=== PATIENT | female | born 1930 | race Caucasian/White ===

== ENCOUNTER 2018-02-25 22:55 | Inpatient (IN) | payer MEDICARE, MEDICAID ==
[2018-02-25] MEDS: SODIUM CHLORIDE 0.9% 1L BAG IV* (00:34)
[2018-02-25 23:35] LABS: ADD MAN DIFF? NO
[2018-02-25 23:45] LABS: WHITE BLOOD COUNT 11.3 10^3/ul (4.8-10.8)
[2018-02-25 23:45] LABS: BASOPHIL # 0.1 10^3/ul (0.0-0.1); BASOPHILS % 0.5 % (0.0-2.0); EOSINOPHILS % 0.1 % (0.0-7.0); HEMOGLOBIN 14.6 g/dl (12.0-16.0); LYMPHOCYTES # 1.8 10^3/ul (0.8-2.9); MEAN CORPUSCULAR HEMOGLOBIN 28.4 pg (29.0-33.0); MEAN CORPUSCULAR HGB CONC 31.1 g/dl (32.0-37.0); MEAN CORPUSCULAR VOLUME 91.4 fl (82.0-101.0); MEAN PLATELET VOLUME 10.8 fl (7.4-10.4); MONOCYTE # 0.8 10^3/ul (0.3-0.9); NEUTROPHIL # 8.6 10^3/ul (1.6-7.5); NEUTROPHILS % 75.9 % (39.0-77.0); PLATELET COUNT 324 10^3/UL (140-415); RED BLOOD COUNT 5.14 10^6/ul (4.20-5.40); RED CELL DISTRIBUTION WIDTH 14.1 % (11.5-14.5)
[2018-02-26 00:04] LABS: INR 1.19; PROTIME 15.3 Sec (11.9-14.9); PT RATIO 1.2
[2018-02-26 00:05] LABS: LACTIC ACID 7.1 mmol/L (0.5-2.0)
[2018-02-26 00:08] LABS: ALANINE AMINOTRANSFERASE 21 IU/L (13-69); ALBUMIN 4.5 g/dl (3.3-4.9); ALBUMIN/GLOBULIN RATIO 1.02; ALKALINE PHOSPHATASE 93 IU/L (42-121); ANION GAP 19 (8-16); ASPARTATE AMINO TRANSFERASE 29 IU/L (15-46); BILIRUBIN,INDIRECT 0.4 mg/dl (0-1.1); BILIRUBIN,TOTAL 0.4 mg/dl (0.2-1.3); BLOOD UREA NITROGEN 22 mg/dl (7-20); CALCIUM 9.6 mg/dl (8.4-10.2); CARBON DIOXIDE 19 mmol/L (21-31); CHLORIDE 117 mmol/L (97-110); CREATININE 0.79 mg/dl (0.44-1.00); GLUCOSE 151 mg/dl (70-220); LIPASE 23 U/L (23-300); MAGNESIUM 2.4 mg/dl (1.7-2.5); SODIUM 151 mmol/L (135-144); TOTAL PROTEIN 8.9 g/dl (6.1-8.1)
[2018-02-26 00:09] LABS: DIGOXIN < 0.4 ng/ml (1.0-2.0)
[2018-02-26 00:19] LABS: TROPONIN-I < 0.010 ng/ml (0.000-0.120)
[2018-02-26 01:23] LABS: URINE BLOOD (Dip) POC 2+ (NEGATIVE); URINE GLUCOSE (Dip) POC Negative (NEGATIVE); URINE KETONES (Dip) POC Negative (NEGATIVE); URINE LEUKOCYTE EST (Dip) POC 1+ (NEGATIVE); URINE NITRITE (Dip) POC Positive (NEGATIVE); URINE TOTAL PROTEIN POC 3+ (NEGATIVE)
[2018-02-26 01:23] LABS: URINE PH (Dip) POC 6.5 (5.0-8.5)
[2018-02-26] MEDS: DIGOXIN 500 MCG INJ IV ×2 (02:33→05:58)
[2018-02-26 02:38] LABS: LACTIC ACID 2.4 mmol/L (0.5-2.0)
[2018-02-26] MEDS: MEROPENEM 1 GM/50ML(PMX) 50 ML IVPB ×2 (02:59→15:38)
[2018-02-26] MEDS ORDERED: NACL 0.9% 3 ML SYG IV (03:00)
[2018-02-26] MEDS ORDERED: DOCUSATE SODIUM 100 MG CAP PO ×2 (03:00→21:00)
[2018-02-26] MEDS ORDERED: ACETAMINOPHEN 325 MG TAB PO (03:00)
[2018-02-26] MEDS ORDERED: LORAZEPAM 2 MG INJ IV (03:00)
[2018-02-26] MEDS ORDERED: ONDANSETRON 4 MG INJ IV (03:00)
[2018-02-26] MEDS ORDERED: BISACODYL 10 MG SUPP PR (03:00)
[2018-02-26] MEDS ORDERED: VANCOMYCIN IV PER PHARMACY XX (03:00)
[2018-02-26] MEDS ORDERED: morphine 2 MG INJ IV (03:00)
[2018-02-26] MEDS ORDERED: MAGNESIUM HYDROXIDE 30ML CUP PO (03:00)
[2018-02-26] MEDS ORDERED: ACETAMINOPHEN 325 MG TAB GTB (03:00)
[2018-02-26] MEDS: DIATR MEGLU/DIATRIZOATE SODIUM 120 ML BTL (04:17)
[2018-02-26] MEDS: VANCOMYCIN 1 GM in 250 ML IVPB (04:32)
[2018-02-26] MEDS: CARBIDOPA/LEVODOPA (25/250) TAB GTB ×3 (06:00→21:15)
[2018-02-26 06:34] LABS: LACTIC ACID 4.3 mmol/L (0.5-2.0)
[2018-02-26] MEDS: SOD CHLORIDE 0.9% 1,000 ML IV ×2 (06:40→15:24)
[2018-02-26] MEDS: LEVOTHYROXINE 88 MCG TAB GTB (07:00)
[2018-02-26] MEDS ORDERED: PENDING SANTYL ORDER FOR WOUND CARE XX (07:00)
[2018-02-26] MEDS ORDERED: PANTOPRAZOLE (EC) 40 MG TAB PO (09:00)
[2018-02-26] MEDS: CALCIUM/VITAMIN D (500/200) TAB GTB ×2 (09:08→20:07)
[2018-02-26] MEDS: AMLODIPINE 5 MG TAB GTB (09:08)
[2018-02-26] MEDS: ASCORBIC ACID 500 MG TAB GTB ×3 (09:08→20:07)
[2018-02-26] MEDS: GABAPENTIN 100 MG CAP GTB ×3 (09:08→20:07)
[2018-02-26] MEDS: APIXABAN 5 MG TABLET GTB ×2 (09:08→20:07)
[2018-02-26] MEDS: METOPROLOL 25 MG TAB GTB ×2 (09:08→20:07)
[2018-02-26] MEDS: PANTOPRAZOLE (EC) 40 MG TAB PO (09:09)
[2018-02-26] MEDS: MAGNESIUM HYDROXIDE 30ML CUP GTB (09:09)
[2018-02-26] MEDS: MULTIVITAMINS 30 ML CUP GTB (09:30)
[2018-02-26] MEDS: DIGOXIN 0.125 MG TAB GTB (13:20)
[2018-02-26] MEDS ORDERED: DOCUSATE SODIUM 10 MG/ML (10ML CUP) GTB (20:30)
[2018-02-26] MEDS: DOCUSATE SODIUM 10 MG/ML (10ML CUP) GTB (21:14)
[2018-02-27] MEDS: MAGNESIUM HYDROXIDE 30ML CUP GTB (03:38)
[2018-02-27] MEDS: MEROPENEM 1 GM/50ML(PMX) 50 ML IVPB ×2 (03:46→14:55)
[2018-02-27] MEDS: VANCOMYCIN 750 MG in SOD CHLORIDE 0.9% 150 ML IVPB (03:47)
[2018-02-27] MEDS: LANSOPRAZOLE 30 MG CAP GTB (05:15)
[2018-02-27] MEDS: CARBIDOPA/LEVODOPA (25/250) TAB GTB ×3 (05:15→22:00)
[2018-02-27] MEDS: LEVOTHYROXINE 88 MCG TAB GTB (05:15)
[2018-02-27 06:48] LABS: ADD MAN DIFF? NO
[2018-02-27 06:50] LABS: WHITE BLOOD COUNT 15.1 10^3/ul (4.8-10.8)
[2018-02-27 06:50] LABS: BASOPHIL # 0.1 10^3/ul (0.0-0.1); BASOPHILS % 0.7 % (0.0-2.0); EOSINOPHILS # 0.4 10^3/ul (0.0-0.5); EOSINOPHILS % 2.7 % (0.0-7.0); HEMATOCRIT 43.6 % (37.0-47.0); HEMOGLOBIN 13.4 g/dl (12.0-16.0); LYMPHOCYTES # 2.2 10^3/ul (0.8-2.9); LYMPHOCYTES % 14.6 % (15.0-51.0); MEAN CORPUSCULAR HEMOGLOBIN 28.3 pg (29.0-33.0); MEAN CORPUSCULAR HGB CONC 30.7 g/dl (32.0-37.0); MONOCYTE # 1.5 10^3/ul (0.3-0.9); MONOCYTES % 9.7 % (0.0-11.0); NEUTROPHIL # 10.8 10^3/ul (1.6-7.5); NEUTROPHILS % 71.8 % (39.0-77.0); PLATELET COUNT 306 10^3/UL (140-415); RED BLOOD COUNT 4.74 10^6/ul (4.20-5.40); RED CELL DISTRIBUTION WIDTH 13.8 % (11.5-14.5)
[2018-02-27 07:16] LABS: ALBUMIN 3.8 g/dl (3.3-4.9); ALKALINE PHOSPHATASE 87 IU/L (42-121); ANION GAP 13 (8-16); ASPARTATE AMINO TRANSFERASE 38 IU/L (15-46); BILIRUBIN,INDIRECT 0.4 mg/dl (0-1.1); BILIRUBIN,TOTAL 0.4 mg/dl (0.2-1.3); BLOOD UREA NITROGEN 17 mg/dl (7-20); CALCIUM 9.2 mg/dl (8.4-10.2); CARBON DIOXIDE 24 mmol/L (21-31); CHLORIDE 115 mmol/L (97-110); CREATININE 0.59 mg/dl (0.44-1.00); GLUCOSE 105 mg/dl (70-220); POTASSIUM 3.1 mmol/L (3.5-5.1); SODIUM 149 mmol/L (135-144); TOTAL PROTEIN 7.6 g/dl (6.1-8.1)
[2018-02-27 07:17] LABS: PHOSPHORUS 2.6 mg/dl (2.5-4.9)
[2018-02-27 07:17] LABS: MAGNESIUM 2.1 mg/dl (1.7-2.5)
[2018-02-27 07:21] LABS: ALANINE AMINOTRANSFERASE < 6 IU/L (13-69)
[2018-02-27] MEDS: AMLODIPINE 5 MG TAB GTB (08:42)
[2018-02-27] MEDS: CALCIUM/VITAMIN D (500/200) TAB GTB ×2 (08:42→20:42)
[2018-02-27] MEDS: ASCORBIC ACID 500 MG TAB GTB ×3 (08:42→20:42)
[2018-02-27] MEDS: MULTIVITAMINS 30 ML CUP GTB (08:42)
[2018-02-27] MEDS: POTASSIUM CHLORIDE (SR) 20 MEQ TAB PO (08:43)
[2018-02-27] MEDS: GABAPENTIN 100 MG CAP GTB ×3 (08:43→20:42)
[2018-02-27] MEDS: APIXABAN 5 MG TABLET GTB (08:43)
[2018-02-27] MEDS: METOPROLOL 25 MG TAB GTB ×2 (08:43→20:41)
[2018-02-27] MEDS: DIGOXIN 0.125 MG TAB GTB (13:00)
[2018-02-27] MEDS: DEXTROSE 5%-0.45% NACL 1,000 ML IV (17:32)
[2018-02-27] MEDS: DOCUSATE SODIUM 10 MG/ML (10ML CUP) GTB (20:41)
[2018-02-28] MEDS: MAGNESIUM HYDROXIDE 30ML CUP GTB (03:00)
[2018-02-28] MEDS: MEROPENEM 1 GM/50ML(PMX) 50 ML IVPB (03:09)
[2018-02-28] MEDS: VANCOMYCIN 750 MG in SOD CHLORIDE 0.9% 150 ML IVPB (03:32)
[2018-02-28] MEDS: LANSOPRAZOLE 30 MG CAP GTB (05:23)
[2018-02-28] MEDS: CARBIDOPA/LEVODOPA (25/250) TAB GTB ×3 (05:24→22:00)
[2018-02-28] MEDS: LEVOTHYROXINE 88 MCG TAB GTB (05:24)
[2018-02-28 07:10] LABS: ADD MAN DIFF? NO
[2018-02-28 07:11] LABS: BASOPHIL # 0.1 10^3/ul (0.0-0.1); BASOPHILS % 0.6 % (0.0-2.0); EOSINOPHILS # 0.3 10^3/ul (0.0-0.5); EOSINOPHILS % 2.3 % (0.0-7.0); HEMATOCRIT 44.9 % (37.0-47.0); HEMOGLOBIN 13.9 g/dl (12.0-16.0); LYMPHOCYTES # 2.6 10^3/ul (0.8-2.9); LYMPHOCYTES % 19.2 % (15.0-51.0); MEAN CORPUSCULAR HEMOGLOBIN 28.3 pg (29.0-33.0); MEAN CORPUSCULAR VOLUME 91.3 fl (82.0-101.0); MEAN PLATELET VOLUME 10.9 fl (7.4-10.4); MONOCYTE # 1.4 10^3/ul (0.3-0.9); MONOCYTES % 10.6 % (0.0-11.0); NEUTROPHIL # 8.9 10^3/ul (1.6-7.5); NEUTROPHILS % 66.8 % (39.0-77.0); PLATELET COUNT 325 10^3/UL (140-415); RED BLOOD COUNT 4.92 10^6/ul (4.20-5.40); RED CELL DISTRIBUTION WIDTH 13.5 % (11.5-14.5)
[2018-02-28 07:11] LABS: WHITE BLOOD COUNT 13.3 10^3/ul (4.8-10.8)
[2018-02-28] MEDS: DEXTROSE 5%-0.45% NACL 1,000 ML IV ×2 (07:48→22:06)
[2018-02-28 08:00] LABS: PHOSPHORUS 2.7 mg/dl (2.5-4.9)
[2018-02-28 08:00] LABS: MAGNESIUM 2.2 mg/dl (1.7-2.5)
[2018-02-28] MEDS: GABAPENTIN 100 MG CAP GTB ×3 (08:01→20:17)
[2018-02-28] MEDS: MULTIVITAMINS 30 ML CUP GTB (08:01)
[2018-02-28] MEDS: METOPROLOL 25 MG TAB GTB ×2 (08:01→20:17)
[2018-02-28] MEDS: AMLODIPINE 5 MG TAB GTB (08:02)
[2018-02-28] MEDS: ASCORBIC ACID 500 MG TAB GTB ×3 (08:02→20:17)
[2018-02-28] MEDS: CALCIUM/VITAMIN D (500/200) TAB GTB ×2 (08:02→20:17)
[2018-02-28 08:10] LABS: ANION GAP 14 (8-16); BLOOD UREA NITROGEN 14 mg/dl (7-20); CALCIUM 9.3 mg/dl (8.4-10.2); CARBON DIOXIDE 33 mmol/L (21-31); CHLORIDE 108 mmol/L (97-110); CREATININE 0.58 mg/dl (0.44-1.00); GLUCOSE 97 mg/dl (70-220); POTASSIUM 3.8 mmol/L (3.5-5.1); SODIUM 151 mmol/L (135-144)
[2018-02-28 08:11] LABS: LACTIC ACID 3.3 mmol/L (0.5-2.0)
[2018-02-28] MEDS: ENOXAPARIN 40 MG/0.4 ML SYG SC (08:28)
[2018-02-28] MEDS: DIGOXIN 0.125 MG TAB GTB (13:00)
[2018-02-28] MEDS: DOCUSATE SODIUM 10 MG/ML (10ML CUP) GTB (20:17)
[2018-02-28] MEDS: CEFEPIME 1GM/50 ML (PMX) 50 ML IVPB (21:00)
[2018-03-01] MEDS: MUPIROCIN 2% 22 GM OINT TOP ×3 (00:29→21:49)
[2018-03-01] MEDS: MAGNESIUM HYDROXIDE 30ML CUP GTB (03:00)
[2018-03-01 03:12] LABS: ADD MAN DIFF? NO
[2018-03-01 03:14] LABS: BASOPHIL # 0.1 10^3/ul (0.0-0.1); BASOPHILS % 0.6 % (0.0-2.0); EOSINOPHILS # 0.2 10^3/ul (0.0-0.5); EOSINOPHILS % 1.9 % (0.0-7.0); HEMATOCRIT 44.8 % (37.0-47.0); HEMOGLOBIN 14.4 g/dl (12.0-16.0); LYMPHOCYTES # 2.3 10^3/ul (0.8-2.9); MEAN CORPUSCULAR HEMOGLOBIN 28.1 pg (29.0-33.0); MEAN CORPUSCULAR HGB CONC 32.1 g/dl (32.0-37.0); MEAN CORPUSCULAR VOLUME 87.5 fl (82.0-101.0); MEAN PLATELET VOLUME 10.2 fl (7.4-10.4); MONOCYTE # 1.1 10^3/ul (0.3-0.9); MONOCYTES % 10.5 % (0.0-11.0); NEUTROPHIL # 6.8 10^3/ul (1.6-7.5); NEUTROPHILS % 64.6 % (39.0-77.0); PLATELET COUNT 318 10^3/UL (140-415); RED BLOOD COUNT 5.12 10^6/ul (4.20-5.40); RED CELL DISTRIBUTION WIDTH 13.3 % (11.5-14.5)
[2018-03-01 03:14] LABS: WHITE BLOOD COUNT 10.4 10^3/ul (4.8-10.8)
[2018-03-01 03:30] LABS: PHOSPHORUS 2.4 mg/dl (2.5-4.9)
[2018-03-01 03:31] LABS: ANION GAP 12 (8-16); BLOOD UREA NITROGEN 16 mg/dl (7-20); CALCIUM 9.1 mg/dl (8.4-10.2); CARBON DIOXIDE 28 mmol/L (21-31); CHLORIDE 109 mmol/L (97-110); CREATININE 0.61 mg/dl (0.44-1.00); GLUCOSE 100 mg/dl (70-220); SODIUM 146 mmol/L (135-144)
[2018-03-01] MEDS: VANCOMYCIN 750 MG in SOD CHLORIDE 0.9% 150 ML IVPB (04:00)
[2018-03-01] MEDS: LANSOPRAZOLE 30 MG CAP GTB (05:12)
[2018-03-01] MEDS: CARBIDOPA/LEVODOPA (25/250) TAB GTB ×3 (05:12→21:20)
[2018-03-01] MEDS: LEVOTHYROXINE 88 MCG TAB GTB (05:12)
[2018-03-01] MEDS: AMLODIPINE 5 MG TAB GTB (08:14)
[2018-03-01] MEDS: MULTIVITAMINS 30 ML CUP GTB (08:14)
[2018-03-01] MEDS: CALCIUM/VITAMIN D (500/200) TAB GTB ×2 (08:14→21:00)
[2018-03-01] MEDS: ASCORBIC ACID 500 MG TAB GTB ×3 (08:14→21:00)
[2018-03-01] MEDS: GABAPENTIN 100 MG CAP GTB ×3 (08:14→21:00)
[2018-03-01] MEDS: METOPROLOL 25 MG TAB GTB ×2 (08:14→21:00)
[2018-03-01] MEDS: ENOXAPARIN 40 MG/0.4 ML SYG SC (08:56)
[2018-03-01] MEDS: DEXTROSE 5%-0.45% NACL 1,000 ML IV (10:43)
[2018-03-01] MEDS: CEFEPIME 1GM/50 ML (PMX) 50 ML IVPB ×2 (10:43→21:48)
[2018-03-01] MEDS: DIGOXIN 0.125 MG TAB GTB (12:00)
[2018-03-01] MEDS: POTASSIUM CHLORIDE 100 ML IVPB ×2 (12:43→15:15)
[2018-03-01] MEDS: VANCOMYCIN 1 GM 250 ML IVPB (18:30)
[2018-03-01] MEDS: DOCUSATE SODIUM 10 MG/ML (10ML CUP) GTB (21:00)
[2018-03-02] MEDS: DEXTROSE 5%-0.45% NACL 1,000 ML IV ×3 (02:42→23:20)
[2018-03-02] MEDS: MAGNESIUM HYDROXIDE 30ML CUP GTB (03:00)
[2018-03-02] MEDS: LANSOPRAZOLE 30 MG CAP GTB (06:00)
[2018-03-02] MEDS: CARBIDOPA/LEVODOPA (25/250) TAB GTB ×3 (06:00→19:53)
[2018-03-02] MEDS: LEVOTHYROXINE 88 MCG TAB GTB (06:17)
[2018-03-02 07:58] LABS: ADD MAN DIFF? NO
[2018-03-02 08:07] LABS: BASOPHIL # 0.1 10^3/ul (0.0-0.1); BASOPHILS % 0.7 % (0.0-2.0); EOSINOPHILS # 0.4 10^3/ul (0.0-0.5); EOSINOPHILS % 3.5 % (0.0-7.0); HEMATOCRIT 44.5 % (37.0-47.0); HEMOGLOBIN 13.8 g/dl (12.0-16.0); LYMPHOCYTES # 2.7 10^3/ul (0.8-2.9); LYMPHOCYTES % 23.5 % (15.0-51.0); MEAN CORPUSCULAR HEMOGLOBIN 27.8 pg (29.0-33.0); MEAN CORPUSCULAR VOLUME 89.5 fl (82.0-101.0); MEAN PLATELET VOLUME 11.2 fl (7.4-10.4); MONOCYTE # 1.3 10^3/ul (0.3-0.9); MONOCYTES % 11.3 % (0.0-11.0); NEUTROPHIL # 7.1 10^3/ul (1.6-7.5); NEUTROPHILS % 60.6 % (39.0-77.0); PLATELET COUNT 268 10^3/UL (140-415); RED BLOOD COUNT 4.97 10^6/ul (4.20-5.40); RED CELL DISTRIBUTION WIDTH 13.5 % (11.5-14.5)
[2018-03-02 08:07] LABS: WHITE BLOOD COUNT 11.6 10^3/ul (4.8-10.8)
[2018-03-02] MEDS: GABAPENTIN 100 MG CAP GTB ×3 (08:25→19:52)
[2018-03-02] MEDS: METOPROLOL 25 MG TAB GTB ×2 (08:25→19:52)
[2018-03-02] MEDS: MULTIVITAMINS 30 ML CUP GTB (08:25)
[2018-03-02] MEDS: AMLODIPINE 5 MG TAB GTB (08:26)
[2018-03-02] MEDS: ASCORBIC ACID 500 MG TAB GTB ×3 (08:26→19:53)
[2018-03-02] MEDS: CALCIUM/VITAMIN D (500/200) TAB GTB ×2 (08:26→19:53)
[2018-03-02] MEDS: CEFEPIME 1GM/50 ML (PMX) 50 ML IVPB ×2 (08:30→22:21)
[2018-03-02] MEDS: MUPIROCIN 2% 22 GM OINT TOP ×2 (08:31→22:22)
[2018-03-02] MEDS: ENOXAPARIN 40 MG/0.4 ML SYG SC (08:31)
[2018-03-02 08:44] LABS: PHOSPHORUS 2.6 mg/dl (2.5-4.9)
[2018-03-02 08:44] LABS: ANION GAP 10 (8-16); BLOOD UREA NITROGEN 18 mg/dl (7-20); CARBON DIOXIDE 28 mmol/L (21-31); CHLORIDE 111 mmol/L (97-110); CREATININE 0.63 mg/dl (0.44-1.00); GLUCOSE 103 mg/dl (70-220); POTASSIUM 3.1 mmol/L (3.5-5.1); SODIUM 146 mmol/L (135-144)
[2018-03-02] MEDS: hydrALAzine 20 MG INJ IV (09:36)
[2018-03-02] MEDS: DIGOXIN 0.125 MG TAB GTB (11:50)
[2018-03-02] MEDS: DOCUSATE SODIUM 10 MG/ML (10ML CUP) GTB (19:51)
[2018-03-03] MEDS: MAGNESIUM HYDROXIDE 30ML CUP GTB (03:00)
[2018-03-03] MEDS: LANSOPRAZOLE 30 MG CAP GTB (03:12)
[2018-03-03] MEDS: CARBIDOPA/LEVODOPA (25/250) TAB GTB ×3 (03:13→22:00)
[2018-03-03] MEDS: LEVOTHYROXINE 88 MCG TAB GTB (07:00)
[2018-03-03 08:10] LABS: ADD MAN DIFF? NO
[2018-03-03] MEDS: CEFEPIME 1GM/50 ML (PMX) 50 ML IVPB ×2 (08:10→21:58)
[2018-03-03] MEDS: MUPIROCIN 2% 22 GM OINT TOP ×2 (08:13→21:00)
[2018-03-03] MEDS: ENOXAPARIN 40 MG/0.4 ML SYG SC (08:14)
[2018-03-03 08:22] LABS: BASOPHIL # 0.1 10^3/ul (0.0-0.1); BASOPHILS % 0.6 % (0.0-2.0); EOSINOPHILS # 0.4 10^3/ul (0.0-0.5); EOSINOPHILS % 3.3 % (0.0-7.0); HEMOGLOBIN 14.4 g/dl (12.0-16.0); LYMPHOCYTES # 3.2 10^3/ul (0.8-2.9); LYMPHOCYTES % 28.6 % (15.0-51.0); MEAN CORPUSCULAR HEMOGLOBIN 27.8 pg (29.0-33.0); MEAN CORPUSCULAR VOLUME 86.9 fl (82.0-101.0); MEAN PLATELET VOLUME 10.8 fl (7.4-10.4); MONOCYTE # 1.3 10^3/ul (0.3-0.9); MONOCYTES % 11.2 % (0.0-11.0); NEUTROPHIL # 6.3 10^3/ul (1.6-7.5); NEUTROPHILS % 55.9 % (39.0-77.0); PLATELET COUNT 306 10^3/UL (140-415); RED BLOOD COUNT 5.18 10^6/ul (4.20-5.40); RED CELL DISTRIBUTION WIDTH 13.6 % (11.5-14.5)
[2018-03-03 08:22] LABS: WHITE BLOOD COUNT 11.2 10^3/ul (4.8-10.8)
[2018-03-03 08:37] LABS: PHOSPHORUS 2.6 mg/dl (2.5-4.9)
[2018-03-03 08:37] LABS: MAGNESIUM 1.8 mg/dl (1.7-2.5)
[2018-03-03 08:39] LABS: ALANINE AMINOTRANSFERASE 37 IU/L (13-69); ALBUMIN 3.7 g/dl (3.3-4.9); ALKALINE PHOSPHATASE 79 IU/L (42-121); ANION GAP 12 (8-16); ASPARTATE AMINO TRANSFERASE 30 IU/L (15-46); BILIRUBIN,INDIRECT 0.5 mg/dl (0-1.1); BILIRUBIN,TOTAL 0.5 mg/dl (0.2-1.3); BLOOD UREA NITROGEN 12 mg/dl (7-20); CARBON DIOXIDE 27 mmol/L (21-31); CHLORIDE 105 mmol/L (97-110); CREATININE 0.58 mg/dl (0.44-1.00); GLUCOSE 105 mg/dl (70-220); SODIUM 141 mmol/L (135-144); TOTAL PROTEIN 7.4 g/dl (6.1-8.1)
[2018-03-03 08:47] LABS: POTASSIUM 2.7 mmol/L (3.5-5.1)
[2018-03-03] MEDS: CALCIUM/VITAMIN D (500/200) TAB GTB ×2 (09:00→21:00)
[2018-03-03] MEDS: GABAPENTIN 100 MG CAP GTB ×3 (09:00→21:00)
[2018-03-03] MEDS: AMLODIPINE 5 MG TAB GTB (09:00)
[2018-03-03] MEDS: MULTIVITAMINS 30 ML CUP GTB (09:00)
[2018-03-03] MEDS: METOPROLOL 25 MG TAB GTB ×2 (09:00→21:00)
[2018-03-03] MEDS: ASCORBIC ACID 500 MG TAB GTB ×3 (09:00→21:00)
[2018-03-03] MEDS: POTASSIUM CHLORIDE 100 ML IVPB ×3 (11:25→15:29)
[2018-03-03] MEDS: DIGOXIN 0.125 MG TAB GTB (12:36)
[2018-03-03] MEDS: DOCUSATE SODIUM 10 MG/ML (10ML CUP) GTB (21:00)
[2018-03-03] MEDS: DEXTROSE 5%-0.45% NACL 1,000 ML IV (21:36)
[2018-03-04] MEDS: MAGNESIUM HYDROXIDE 30ML CUP GTB (02:49)
[2018-03-04] MEDS: LANSOPRAZOLE 30 MG CAP GTB ×2 (02:49→21:00)
[2018-03-04 05:42] LABS: ADD MAN DIFF? NO
[2018-03-04 05:56] LABS: BASOPHIL # 0.1 10^3/ul (0.0-0.1); BASOPHILS % 0.8 % (0.0-2.0); EOSINOPHILS # 0.5 10^3/ul (0.0-0.5); EOSINOPHILS % 4.4 % (0.0-7.0); HEMOGLOBIN 13.6 g/dl (12.0-16.0); LYMPHOCYTES # 3.6 10^3/ul (0.8-2.9); LYMPHOCYTES % 31.5 % (15.0-51.0); MEAN CORPUSCULAR HEMOGLOBIN 28.1 pg (29.0-33.0); MEAN CORPUSCULAR HGB CONC 32.4 g/dl (32.0-37.0); MEAN CORPUSCULAR VOLUME 86.8 fl (82.0-101.0); MEAN PLATELET VOLUME 10.6 fl (7.4-10.4); MONOCYTE # 1.3 10^3/ul (0.3-0.9); MONOCYTES % 11.2 % (0.0-11.0); NEUTROPHIL # 5.8 10^3/ul (1.6-7.5); NEUTROPHILS % 51.6 % (39.0-77.0); PLATELET COUNT 280 10^3/UL (140-415); RED BLOOD COUNT 4.84 10^6/ul (4.20-5.40); RED CELL DISTRIBUTION WIDTH 13.6 % (11.5-14.5)
[2018-03-04 05:56] LABS: WHITE BLOOD COUNT 11.3 10^3/ul (4.8-10.8)
[2018-03-04] MEDS: CARBIDOPA/LEVODOPA (25/250) TAB GTB ×3 (06:00→21:26)
[2018-03-04] MEDS: LEVOTHYROXINE 88 MCG TAB GTB (06:19)
[2018-03-04 06:21] LABS: ANION GAP 9 (8-16); BLOOD UREA NITROGEN 9 mg/dl (7-20); CALCIUM 8.9 mg/dl (8.4-10.2); CARBON DIOXIDE 28 mmol/L (21-31); CHLORIDE 108 mmol/L (97-110); CREATININE 0.56 mg/dl (0.44-1.00); GLUCOSE 97 mg/dl (70-220); POTASSIUM 3.3 mmol/L (3.5-5.1); SODIUM 142 mmol/L (135-144)
[2018-03-04 06:24] LABS: MAGNESIUM 1.7 mg/dl (1.7-2.5)
[2018-03-04 06:24] LABS: PHOSPHORUS 2.6 mg/dl (2.5-4.9)
[2018-03-04] MEDS ORDERED: LIDOCAINE 2% (SDV) 5 ML INJ (07:00)
[2018-03-04] MEDS: GABAPENTIN 100 MG CAP GTB ×3 (08:21→21:00)
[2018-03-04] MEDS: METOPROLOL 25 MG TAB GTB ×2 (08:21→21:00)
[2018-03-04] MEDS: ASCORBIC ACID 500 MG TAB GTB ×3 (08:21→21:00)
[2018-03-04] MEDS: CALCIUM/VITAMIN D (500/200) TAB GTB ×2 (08:21→21:00)
[2018-03-04] MEDS: MULTIVITAMINS 30 ML CUP GTB (08:21)
[2018-03-04] MEDS: AMLODIPINE 5 MG TAB GTB (08:21)
[2018-03-04] MEDS: CEFEPIME 1GM/50 ML (PMX) 50 ML IVPB ×2 (08:26→21:19)
[2018-03-04] MEDS: MUPIROCIN 2% 22 GM OINT TOP ×2 (08:30→21:00)
[2018-03-04] MEDS: DEXTROSE 5%-0.45% NACL 1,000 ML IV (11:54)
[2018-03-04] MEDS ORDERED: PROPOFOL 20 ML (12:01)
[2018-03-04] MEDS ORDERED: ACETAMINOPHEN 1000MG/100ML IV 100 ML IVPB (12:30)
[2018-03-04] MEDS ORDERED: ONDANSETRON 4 MG INJ IV (12:30)
[2018-03-04] MEDS: DIGOXIN 0.125 MG TAB GTB (14:55)
[2018-03-04] MEDS: POTASSIUM CHLORIDE 100 ML IVPB (16:18)
[2018-03-04] MEDS: DOCUSATE SODIUM 10 MG/ML (10ML CUP) GTB (21:00)
[2018-03-05] MEDS: DEXTROSE 5%-0.45% NACL 1,000 ML IV ×2 (02:12→17:30)
[2018-03-05] MEDS: MAGNESIUM HYDROXIDE 30ML CUP GTB (03:32)
[2018-03-05] MEDS: CARBIDOPA/LEVODOPA (25/250) TAB GTB ×3 (06:31→22:09)
[2018-03-05] MEDS: LEVOTHYROXINE 88 MCG TAB GTB (06:31)
[2018-03-05 06:49] LABS: ADD MAN DIFF? NO
[2018-03-05 06:52] LABS: BASOPHIL # 0.1 10^3/ul (0.0-0.1); BASOPHILS % 0.7 % (0.0-2.0); EOSINOPHILS # 0.6 10^3/ul (0.0-0.5); EOSINOPHILS % 5.8 % (0.0-7.0); HEMATOCRIT 39.3 % (37.0-47.0); HEMOGLOBIN 12.6 g/dl (12.0-16.0); LYMPHOCYTES % 30.2 % (15.0-51.0); MEAN CORPUSCULAR HEMOGLOBIN 28.3 pg (29.0-33.0); MEAN CORPUSCULAR HGB CONC 32.1 g/dl (32.0-37.0); MEAN CORPUSCULAR VOLUME 88.1 fl (82.0-101.0); MONOCYTE # 1.3 10^3/ul (0.3-0.9); MONOCYTES % 12.7 % (0.0-11.0); PLATELET COUNT 253 10^3/UL (140-415); RED BLOOD COUNT 4.46 10^6/ul (4.20-5.40); RED CELL DISTRIBUTION WIDTH 13.5 % (11.5-14.5)
[2018-03-05 07:13] LABS: ANION GAP 10 (8-16); BLOOD UREA NITROGEN 8 mg/dl (7-20); CALCIUM 8.9 mg/dl (8.4-10.2); CARBON DIOXIDE 28 mmol/L (21-31); CHLORIDE 108 mmol/L (97-110); GLUCOSE 96 mg/dl (70-220); POTASSIUM 3.3 mmol/L (3.5-5.1); SODIUM 143 mmol/L (135-144)
[2018-03-05 07:19] LABS: MAGNESIUM 1.7 mg/dl (1.7-2.5)
[2018-03-05 07:19] LABS: PHOSPHORUS 2.9 mg/dl (2.5-4.9)
[2018-03-05] MEDS: APIXABAN 5 MG TABLET PO ×3 (07:39→22:10)
[2018-03-05] MEDS: METOPROLOL 25 MG TAB GTB ×2 (09:41→22:10)
[2018-03-05] MEDS: GABAPENTIN 100 MG CAP GTB ×3 (09:42→22:09)
[2018-03-05] MEDS: LANSOPRAZOLE 30 MG CAP GTB ×2 (09:42→22:12)
[2018-03-05] MEDS: ASCORBIC ACID 500 MG TAB GTB ×3 (09:42→22:10)
[2018-03-05] MEDS: CEFEPIME 1GM/50 ML (PMX) 50 ML IVPB ×2 (09:42→22:11)
[2018-03-05] MEDS: CALCIUM/VITAMIN D (500/200) TAB GTB ×2 (09:43→22:09)
[2018-03-05] MEDS: AMLODIPINE 5 MG TAB GTB (09:43)
[2018-03-05] MEDS: MUPIROCIN 2% 22 GM OINT TOP ×2 (09:43→21:00)
[2018-03-05] MEDS: MULTIVITAMINS 30 ML CUP GTB (09:43)
[2018-03-05] MEDS: POTASSIUM CHLORIDE (SR) 20 MEQ TAB PO (12:04)
[2018-03-05] MEDS: DIGOXIN 0.125 MG TAB GTB (13:00)
[2018-03-05] MEDS: DOCUSATE SODIUM 10 MG/ML (10ML CUP) GTB (21:00)
[2018-03-05] MEDS ORDERED: morphine LIQ (10 MG/5 ML) CUP PO (23:30)
[2018-03-06] MEDS: MAGNESIUM HYDROXIDE 30ML CUP GTB (03:00)
[2018-03-06] MEDS: CARBIDOPA/LEVODOPA (25/250) TAB GTB ×2 (05:31→13:00)
[2018-03-06] MEDS: DEXTROSE 5%-0.45% NACL 1,000 ML IV (05:34)
[2018-03-06] MEDS: LEVOTHYROXINE 88 MCG TAB GTB (06:13)
[2018-03-06 06:24] LABS: ADD MAN DIFF? NO
[2018-03-06 06:32] LABS: BASOPHIL # 0.1 10^3/ul (0.0-0.1); BASOPHILS % 0.6 % (0.0-2.0); EOSINOPHILS # 0.6 10^3/ul (0.0-0.5); EOSINOPHILS % 5.5 % (0.0-7.0); HEMOGLOBIN 12.4 g/dl (12.0-16.0); LYMPHOCYTES # 3.1 10^3/ul (0.8-2.9); LYMPHOCYTES % 30.4 % (15.0-51.0); MEAN CORPUSCULAR HEMOGLOBIN 27.9 pg (29.0-33.0); MEAN CORPUSCULAR HGB CONC 31.8 g/dl (32.0-37.0); MEAN CORPUSCULAR VOLUME 87.8 fl (82.0-101.0); MEAN PLATELET VOLUME 11.1 fl (7.4-10.4); MONOCYTE # 1.3 10^3/ul (0.3-0.9); MONOCYTES % 12.8 % (0.0-11.0); NEUTROPHIL # 5.2 10^3/ul (1.6-7.5); NEUTROPHILS % 50.1 % (39.0-77.0); PLATELET COUNT 249 10^3/UL (140-415); RED BLOOD COUNT 4.44 10^6/ul (4.20-5.40); RED CELL DISTRIBUTION WIDTH 13.7 % (11.5-14.5)
[2018-03-06 06:32] LABS: WHITE BLOOD COUNT 10.3 10^3/ul (4.8-10.8)
[2018-03-06 07:19] LABS: MAGNESIUM 1.6 mg/dl (1.7-2.5)
[2018-03-06 07:57] LABS: ANION GAP 9 (8-16); BLOOD UREA NITROGEN 10 mg/dl (7-20); CALCIUM 9.2 mg/dl (8.4-10.2); CARBON DIOXIDE 29 mmol/L (21-31); CHLORIDE 105 mmol/L (97-110); GLUCOSE 108 mg/dl (70-220); POTASSIUM 3.4 mmol/L (3.5-5.1); SODIUM 140 mmol/L (135-144)
[2018-03-06] MEDS: CEFEPIME 1GM/50 ML (PMX) 50 ML IVPB (09:02)
[2018-03-06] MEDS: MULTIVITAMINS 30 ML CUP GTB (09:02)
[2018-03-06] MEDS: GABAPENTIN 100 MG CAP GTB ×2 (09:03→13:00)
[2018-03-06] MEDS: AMLODIPINE 5 MG TAB GTB (09:03)
[2018-03-06] MEDS: LANSOPRAZOLE 30 MG CAP GTB (09:03)
[2018-03-06] MEDS: ASCORBIC ACID 500 MG TAB GTB ×2 (09:03→13:01)
[2018-03-06] MEDS: METOPROLOL 25 MG TAB GTB (09:03)
[2018-03-06] MEDS: APIXABAN 5 MG TABLET PO (09:04)
[2018-03-06] MEDS: MUPIROCIN 2% 22 GM OINT TOP (09:16)
[2018-03-06] MEDS: CALCIUM/VITAMIN D (500/200) TAB GTB (09:16)
[2018-03-06] MEDS: POTASSIUM CHLORIDE (SR) 20 MEQ TAB PO (09:57)
[2018-03-06] MEDS: POTASSIUM CHLORIDE (SR) 10 MEQ TAB PO (09:57)
[2018-03-06] MEDS: DIGOXIN 0.125 MG TAB GTB (13:01)
== END 2018-03-06 16:30 | DRG 871 ==
LOC: 6WM 03-03 10:15 → E/R 22:55 → MS4 02-26 01:39
PROC: 0D20XUZ Change Feeding Device in Upper Intestinal Tract, External Approach (ICD-10-PCS; principal; 2018-03-04 12:00)
PROC: 0DJ08ZZ Inspection of Upper Intestinal Tract, Via Natural or Artificial Opening Endoscopic (ICD-10-PCS; 2018-03-04 12:00)
DX: A41.9 Sepsis, unspecified organism (principal); R65.21 Severe sepsis with septic shock; N39.0 Urinary tract infection, site not specified; I69.351 Hemiplegia and hemiparesis following cerebral infarction affecting right dominant side; R64 Cachexia; E87.2 Acidosis; R47.01 Aphasia; E87.0 Hyperosmolality and hypernatremia; F03.90 Unspecified dementia, unspecified severity, without behavioral disturbance, psychotic disturbance, mood disturbance, and anxiety; E03.9 Hypothyroidism, unspecified; I48.0 Paroxysmal atrial fibrillation; E87.6 Hypokalemia; E83.42 Hypomagnesemia; G20 Parkinson's disease; R13.10 Dysphagia, unspecified; E86.0 Dehydration; I10 Essential (primary) hypertension; K22.2 Esophageal obstruction; K29.70 Gastritis, unspecified, without bleeding; K26.9 Duodenal ulcer, unspecified as acute or chronic, without hemorrhage or perforation; R19.7 Diarrhea, unspecified; Z66 Do not resuscitate; T85.898A Other specified complication of other internal prosthetic devices, implants and grafts, initial encounter; Y84.8 Other medical procedures as the cause of abnormal reaction of the patient, or of later complication, without mention of misadventure at the time of the procedure; Y92.129 Unspecified place in nursing home as the place of occurrence of the external cause; Z68.21 Body mass index [BMI] 21.0-21.9, adult; Z22.322 Carrier or suspected carrier of Methicillin resistant Staphylococcus aureus
CPT/HCPCS: 36415; 36569; 71045; 74018; 76937; 80048; 80053; 80162; 80202; 81003; 83605; 83690; 83735; 84100; 84484; 85025; 85610; 85730; 87040; 87081; 87086; 93005; 99291-25

== ENCOUNTER 2019-01-03 19:13 | Emergency (ER) | payer MEDICARE, MEDICAID ==
[2019-01-03 19:35] LABS: WHITE BLOOD COUNT 25.6 10^3/ul (4.8-10.8)
[2019-01-03 19:35] LABS: ABNORMAL IP MESSAGE 1; HEMATOCRIT 51.4 % (37.0-47.0); HEMOGLOBIN 13.5 g/dl (12.0-16.0); MEAN CORPUSCULAR HEMOGLOBIN 28.2 pg (29.0-33.0); MEAN CORPUSCULAR HGB CONC 26.3 g/dl (32.0-37.0); MEAN CORPUSCULAR VOLUME 107.3 fl (82.0-101.0); NUCLEATED RED BLOOD CELLS% 2.7 /100WBC (0.0-0.0); PLATELET COUNT 243 10^3/UL (140-415); RED BLOOD COUNT 4.79 10^6/ul (4.20-5.40); RED CELL DISTRIBUTION WIDTH 18.6 % (11.5-14.5)
[2019-01-03 19:39] LABS: ADD MAN DIFF? YES; MEAN PLATELET VOLUME 13.8 fl (7.4-10.4); PATH REVIEW? YES; POSITIVE DIFF @See below
[2019-01-03] MEDS: SODIUM CHLORIDE 0.9% 1L BAG IV* (19:40)
[2019-01-03] MEDS: CEFEPIME 2GM/50 ML (PMX) 50 ML IVPB (19:40)
[2019-01-03 19:58] LABS: AADO2 Arterial 547.5 mmHg (7.0-24.0); Allen Test ACCEPTAB; Arterial Base Excess -10.8 mmol/L (-3.0-3); Arterial Blood Gas Oxygen Sat 97.6 mmHG (95.0-100.0); Arterial COHb 0.3 % (0.0-3.0); Arterial Fraction of Oxyhgb 96.9 % (93.0-99.0); Arterial HCO3 15.5 mmol/L (22.0-26.0); Arterial MetHb 0.4 % (0.0-1.5); Arterial pCO2 36.1 mmhg (35-45); Blood Gas IEPAP 15/5; Blood Gas PS 10; MODE MASK - BIPAP; Site Left Radial
[2019-01-03] MEDS: VANCOMYCIN 1 GM (PMX) 250 ML IVPB (20:01)
[2019-01-03 20:02] LABS: ALANINE AMINOTRANSFERASE 16 IU/L (13-69); ALBUMIN 4.4 g/dl (3.3-4.9); ALBUMIN/GLOBULIN RATIO 1.07; ALKALINE PHOSPHATASE 42 IU/L (42-121); ANION GAP 15 (5-13); ASPARTATE AMINO TRANSFERASE 36 IU/L (15-46); BILIRUBIN,INDIRECT 0.7 mg/dl (0-1.1); BILIRUBIN,TOTAL 0.7 mg/dl (0.2-1.3); BLOOD UREA NITROGEN 107 mg/dl (7-20); CALCIUM 9.7 mg/dl (8.4-10.2); CARBON DIOXIDE 23 mmol/L (21-31); CHLORIDE 136 mmol/L (97-110); CREATININE 3.02 mg/dl (0.44-1.00); GLUCOSE 224 mg/dl (70-220); INR 2.33; PARTIAL THROMBOPLASTIN TIME 41.2 Sec (23.0-35.0); POTASSIUM 5.8 mmol/L (3.5-5.1); PROTIME 25.6 Sec (11.9-14.9); TOTAL PROTEIN 8.5 g/dl (6.1-8.1)
[2019-01-03 20:24] LABS: SODIUM 174 mmol/L (135-144)
[2019-01-03 20:26] LABS: TROPONIN-I 0.132 ng/ml (0.000-0.120)
[2019-01-03] MEDS ORDERED: morphine 2 MG INJ (20:52)
[2019-01-03] MEDS ORDERED: LORAZEPAM 2 MG INJ IM (21:00)
[2019-01-03] MEDS ORDERED: morphine 2 MG INJ IM (21:00)
[2019-01-03] MEDS ORDERED: morphine 2 MG INJ IV (21:00)
[2019-01-03] MEDS: morphine 2 MG INJ IM (21:05)
[2019-01-03] MEDS: LORAZEPAM 2 MG INJ IM (21:10)
[2019-01-03] MEDS ORDERED: morphine LIQ (10 MG/5 ML) CUP PO (21:30)
[2019-01-03 21:48] LABS: ANISOCYTOSIS 1+ (0-0); BAND NEUTROPHILS #M 4.3 10^3/ul (0.0-0.6); BAND NEUTROPHILS % (M) 17 % (0-4); BURR CELLS 1+ (0-0); ERYTHROBLAST% (NRBC) (M) 8 % (0-0); GIANT THROMBO% (M) 3 % (0-0); LYMPHOCYTES #M 5.3 10^3/ul (0.8-2.9); LYMPHOCYTES % (M) 21 % (15-51); MONOCYTE #M 0.5 10^3/ul (0.3-0.9); MONOCYTES % (M) 2 % (0-11); PLATELET ESTIMATE NORMAL; POIKILOCYTOSIS 1+ (0-0); POLYCHROMASIA 1+ (0-0); SEG NEUT #M 16.5 10^3/ul (1.6-7.5); SEGMENTED NEUTROPHILS (M) % 60 % (39-77); SMUDGE%M 3 % (0-0)
== END 2019-01-03 21:16 | disposition expired ==
LOC: E/R 21:16
DX: J96.01 Acute respiratory failure with hypoxia (principal); G93.40 Encephalopathy, unspecified; R65.21 Severe sepsis with septic shock; A41.9 Sepsis, unspecified organism; N17.9 Acute kidney failure, unspecified; E87.0 Hyperosmolality and hypernatremia; E87.5 Hyperkalemia
CPT/HCPCS: 36415; 36600; 71045; 80053; 82803; 83605; 84484; 85025; 85610; 85730; 87040-91; 93005; 94660; 96372; 96374; 96375; 99285-25